=== PATIENT | female | born 1950 | race Caucasian/White ===

== ENCOUNTER → 2020-12-18 14:28 | Outpatient (CLI) | payer SELFPAY ==
--- NOTE | 2020-12-18 14:42 | DI.RAD.S_ITS ---
PROCEDURE: XR CHEST 2V INDICATIONS: PNEUMONIA TECHNIQUE: 2 views of the chest were acquired. COMPARISON: None. FINDINGS: Surgical changes and devices: None. Lungs and pleura: Lungs are clear. No pleural effusions or pneumothorax. Mediastinum: Mediastinal contours are normal. Heart size is normal. Bones and chest wall: No suspicious bony abnormalities. Prior extensive surgical repair partially visualized right shoulder. Soft tissues appear unremarkable. IMPRESSION: No acute disease, no sign of pneumonia. Bronchitis may be present, and not clearly identified by chest plain film imaging. Dictated by: Juan Mclaughlin M.D. on 12/18/2020 at 15:20 Approved by: Juan Mclaughlin M.D. on 12/18/2020 at 15:20
== END ==
PROVIDERS: Referring Provider Nurse Practitioner; Visit Provider Nurse Practitioner
DX: J18.9 Pneumonia, unspecified organism (principal)
CPT/HCPCS: 71046